=== PATIENT | male | born 1960 | race Caucasian/White ===

== ENCOUNTER 2017-02-17 12:13 | Day surgery (SDC) | payer MEDICARE ==
[~2017-02-17] VITALS: Ht 182.9 cm; Wt 89.4 kg
[~2017-02-17 12:13] MED LIST: AMLO5TAB2; CARV12.52; FURO-93; HYDR-3240; INSU100C SQ; INSU100V8; LISI-170; SPIR25TA3
[2017-02-17] MEDS ORDERED: LIDOCAINE 2%, 20ML ONE (12:30)
[2017-02-17 12:42] VITALS: BP 128/64
[2017-02-17] MEDS ORDERED: VISIPAQUE 270 MG/ML, 50ML BOTTLE ONE (13:00)
== END 2017-02-17 16:45 ==
LOC: OUT 12:13
DX: T82.858A Stenosis of other vascular prosthetic devices, implants and grafts, initial encounter (principal); Y83.8 Other surgical procedures as the cause of abnormal reaction of the patient, or of later complication, without mention of misadventure at the time of the procedure; Y92.89 Other specified places as the place of occurrence of the external cause; E11.22 Type 2 diabetes mellitus with diabetic chronic kidney disease; I12.0 Hypertensive chronic kidney disease with stage 5 chronic kidney disease or end stage renal disease; N18.5 Chronic kidney disease, stage 5; E78.5 Hyperlipidemia, unspecified; K58.9 Irritable bowel syndrome, unspecified; Z98.890 Other specified postprocedural states
CPT/HCPCS: 36902; C1725; C1769; C1894; J3490; Q9966

== ENCOUNTER 2020-12-02 21:16 | Inpatient (IN) | payer MEDICARE ==
[~2020-12-02] VITALS: Ht 182.9 cm; Wt 90.7 kg
[~2020-12-02 21:16] MED LIST changes: +AMLO-150; -AMLO5TAB2; +HYDR-2214; -HYDR-3240; -SPIR25TA3; +SPIR25TA5
--- NOTE | 2020-12-02 21:26 | NUR ---
INITIAL PT CONTACT. PT KELLY FROM HOME WITH COMPLAINTS OF INCREASED WEAKNESS RESULTING IN 3 FALLS IN THE LAST 3 DAYS. PT STATES HE WAS SEEN AT [facility] FOR SAME YESTERDAY. PT REPORTS INCREASED WEAKNESS IN LEGS FOLLOWING RECENT HOSPITALIZATION, "THEY DONT WALK ME ENOUGH WHEN I AM AT THE HOSPITAL." PT STATES HE IS A DIALYSIS PT (MWF) AND WENT TO DIALYSIS THIS AM DUE TO BEING SEEN AT THE HOSPITAL YESTERDAY. PT SITTING UPRIGHT ON GURNEY, NADN, VSS. PLACED ON CONTINUOUS MONITORING, CALL LIGHT AND PERSONAL BELONGINGS WITHIN REACH. PT PROVIDED SOCKS PER REQUEST. AWAITING ERP.
[2020-12-02 22:19] LABS: BASOPHILS % (AUTO) 1 % (0-1); EOSINOPHILS % (AUTO) 1 % (1-7); LYMPHOCYTES % (AUTO) 6 % (22-44); MEAN CORPUSCULAR HEMOGLOBIN 30.9 pg (27.5-34.5); MEAN CORPUSCULAR HGB CONC 34.2 g/dL (33.2-36.2); MONOCYTES % (AUTO) 8 % (2-9); NEUTROPHILS % (AUTO) 84 % (42-75); PLATELET COUNT 54 x10^3/uL (130-400); RED BLOOD COUNT 2.54 x10^6/uL (4.38-5.82); RED CELL DISTRIBUTION WIDTH 16.7 % (9.4-14.8)
[2020-12-02 22:29] LABS: ALANINE AMINOTRANSFERASE 32 U/L (12-78); ALBUMIN 2.6 g/dL (3.4-5.0); ANION GAP 9 mmol/L (5-15); CALCIUM 8.5 mg/dL (8.5-10.1); CHLORIDE 95 mmol/L (98-107); CREATININE 5.07 mg/dL (0.7-1.3)
[2020-12-02 22:31] LABS: ALKALINE PHOSPHATASE 172 U/L (45-117); BILIRUBIN,TOTAL 0.5 mg/dL (0.2-1.0); TOTAL PROTEIN 7.6 g/dL (6.4-8.2)
[2020-12-02] MEDS ORDERED: HYDR2TAB29 PO (22:50)
[2020-12-02] MEDS ORDERED: AMLO-211 PO (22:50)
[2020-12-02] MEDS ORDERED: CHOL10003 PO (22:50)
[2020-12-02] MEDS ORDERED: FLUO20CA23 PO (22:50)
[2020-12-02] MEDS ORDERED: VITA1CAP5 PO (22:50)
[2020-12-02] MEDS ORDERED: WARF2.5T32 PO (22:50)
[2020-12-02] MEDS ORDERED: SEVE800T8 PO (22:50)
[2020-12-02] MEDS ORDERED: PREG75CA PO (22:50)
[2020-12-02] MEDS ORDERED: OMEP40CA8 PO (22:50)
[2020-12-02] MEDS ORDERED: METO50TA82 PO (22:50)
[2020-12-02] MEDS ORDERED: CEFTRIAXONE 1,000 MG in DEXTROSE 5% 50 ML IVPB ONE (23:30)
[2020-12-02] MEDS ORDERED: DOXYCYCLINE 100 MG in DEXTROSE 5% 250 ML IV SCH (23:30)
--- NOTE | 2020-12-03 00:48 | NUR ---
YAIR SISTER: [phone] SISTER WANTS UPDATES WHEN POSSIBLE. OK TO DISCLOSE ALL INFO TO HER PER PT.
[2020-12-03] MEDS ORDERED: HYDROmorphone 2MG TABLET ONE (01:44)
[2020-12-03] MEDS ORDERED: HYDROmorphone 2MG TABLET PO PRN (02:00)
[2020-12-03] MEDS ORDERED: PHARMACY MAY ADJ FOR RENAL FX MC PRN (03:30)
[2020-12-03] MEDS ORDERED: LABETALOL 5MG/ML, 20ML IVPush PRN (03:30)
[2020-12-03] MEDS ORDERED: PROMETHAZINE 25 MG/ML, 1ML IM PRN (03:30)
[2020-12-03] MEDS ORDERED: ACETAMINOPHEN 325 MG TABLET PO PRN (03:30)
--- NOTE | 2020-12-03 04:16 | NUR ---
PT MOVED FROM ED GURNEY TO HOSPITAL BED. PT TOLERATED WELL. PT DENIES ANY ADDITIONAL NEEDS AT THIS TIME. CALL LIGHT AND BELONGINGS WITHIN REACH.
[2020-12-03 04:20] LABS: INTERNATIONAL NORMALIZED RATIO 1.5 (0.93-1.1); PROTHROMBIN TIME 15.7 Seconds (9.6-11.5)
--- NOTE | 2020-12-03 06:58 | NUR ---
RECEIVED REPORT FROM JOSSUE CASANOVA
--- NOTE | 2020-12-03 07:05 | NUR ---
PT SLEEPING CALMLY ON HOSPITAL BED, NAD/VSS WITH SUPPL O2 IN PLACE, NO NEEDS AT THIS TIME, CALL LIGHT WITHIN REACH.
--- NOTE | 2020-12-03 07:10 | NUR ---
BEDSIDE REPORT GIVEN TO RUDOLPH CASANOVA
--- NOTE | 2020-12-03 08:00 | NUR ---
PT UPRIGHT ON HOSPITAL BED AWAKE & COMFORTABLE, RESPONDS APPROP TO STAFF, NAD, COMFORT MEASURES PROVIDED, CALL LIGHT WITHIN REACH.
--- NOTE | 2020-12-03 08:35 | NUR ---
BREAKFAST TRAY GIVEN
[2020-12-03] MEDS ORDERED: FLUOXETINE HCL 20 MG CAPSULE ONE (08:50)
[2020-12-03] MEDS ORDERED: HEPARIN 5,000 UNITS/ML, 1ML ONE (08:50)
[2020-12-03] MEDS ORDERED: METOPROLOL TARTRATE 25 MG TAB ONE (08:50)
[2020-12-03] MEDS ORDERED: SEVELAMER CARBONATE 800MG TAB PO SCH (09:00)
--- NOTE | 2020-12-03 09:02 | NUR ---
PT REMAINS UPRIGHT ON HOSPITAL BED ABLE TO DOZE OFF EASILY BUT AWAKENS/RESPONDS APPROP TO STAFF, NAD, NO NEEDS AT THIS TIME, CALL LIGHT WITHIN REACH.
[2020-12-03] MEDS ORDERED: OMEPRAZOLE 20 MG CAPSULE.DR ONE (09:35)
[2020-12-03] MEDS: OMEPRAZOLE 20 MG CAPSULE.DR PO SCH ×2 (09:58→20:09)
[2020-12-03] MEDS: FLUOXETINE HCL 20 MG CAPSULE PO SCH (09:59)
[2020-12-03] MEDS: METOPROLOL TARTRATE 25 MG TAB PO SCH ×2 (09:59→20:09)
[2020-12-03] MEDS: HEPARIN 5,000 UNITS/ML, 1ML SQ SCH ×2 (09:59→18:20)
--- NOTE | 2020-12-03 10:01 | NUR ---
PT UPRIGHT ON HOSPITAL BED SLEEPING NTERMITTENTLY BUT AWAKENS/RESPONDS APPROP TO STAFF, NAD, COMFORT MEASURES PROVIDED, CALL LIGHT WITHIN REACH.
[2020-12-03] MEDS ORDERED: ACETAMINOPHEN 325 MG TABLET ONE (10:20)
--- NOTE | 2020-12-03 10:35 | NUR ---
UPDATE PROVIDED TO SISTER (YAIR) PER PT OK, SISTER WOULD LIKE TO BE NOTIFIED OF ANY CHANGES WHILE IN THE ER.
--- NOTE | 2020-12-03 11:03 | NUR ---
PT REMAINS UPRIGHT ON HOSPITAL BED DOZING INTERMITTENTLY BUT AWAKENS/RESPONDS APPROP TO STAFF, NAD, NO NEEDS AT THIS TIME, CALL LIGHT WITHIN REACH.
--- NOTE | 2020-12-03 12:04 | NUR ---
PT UPRIGHT ON HOSPITAL BED DOZING OFF BUT AWAKENS/RESPONDS APPROP TO STAFF, NAD, COMFORT MEASURES PROVIDED, CALL LIGHT WITHIN REACH.
[2020-12-03 14:03] VITALS: BP 145/85
[2020-12-03] MEDS: SEVELAMER CARBONATE 800MG TAB PO SCH ×2 (15:45→18:20)
[2020-12-03] MEDS: OXYcodone/APAP 5/325MG TABLET PO PRN (18:20)
[2020-12-03 21:50] VITALS: BP 132/87
[2020-12-04] MEDS ORDERED: PHARMACY INSTRUCTION MC ONE
[2020-12-04] MEDS: OXYcodone/APAP 5/325MG TABLET PO PRN ×2 (00:28→08:08)
[2020-12-04] MEDS: HEPARIN 5,000 UNITS/ML, 1ML SQ SCH ×2 (00:33→09:38)
[2020-12-04 02:00] VITALS: BP 140/80
[2020-12-04 06:31] LABS: BASOPHILS % (AUTO) 1 % (0-1); EOSINOPHILS % (AUTO) 2 % (1-7); LYMPHOCYTES % (AUTO) 12 % (22-44); MEAN CORPUSCULAR HEMOGLOBIN 30.3 pg (27.5-34.5); MEAN CORPUSCULAR HGB CONC 33.3 g/dL (33.2-36.2); MEAN PLATELET VOLUME 10.9 fL (7.4-10.4); MONOCYTES % (AUTO) 8 % (2-9); NEUTROPHILS % (AUTO) 78 % (42-75); RED BLOOD COUNT 2.59 x10^6/uL (4.38-5.82); RED CELL DISTRIBUTION WIDTH 16.7 % (9.4-14.8)
[2020-12-04 06:34] LABS: PLATELET COUNT 48 x10^3/uL (130-400)
[2020-12-04 06:46] LABS: ANION GAP 10 mmol/L (5-15); CALCIUM 7.9 mg/dL (8.5-10.1); CHLORIDE 95 mmol/L (98-107); CREATININE 7.64 mg/dL (0.7-1.3)
[2020-12-04] MEDS: SEVELAMER CARBONATE 800MG TAB PO SCH ×3 (08:12→17:52)
[2020-12-04 08:37] VITALS: BP 156/81
[2020-12-04] MEDS: OMEPRAZOLE 20 MG CAPSULE.DR PO SCH ×2 (09:34→20:30)
[2020-12-04] MEDS: FLUOXETINE HCL 20 MG CAPSULE PO SCH (09:34)
[2020-12-04] MEDS: METOPROLOL TARTRATE 25 MG TAB PO SCH ×2 (09:35→20:30)
[2020-12-04 11:36] VITALS: BP 154/83
[2020-12-04] MEDS: AMLODIPINE 10 MG TAB PO SCH (11:38)
[2020-12-04] MEDS: CARVEDILOL 12.5 MG TABLET PO SCH (11:38)
[2020-12-04] MEDS: PREGABALIN 75 MG CAPSULE PO SCH (11:38)
[2020-12-04] MEDS: HYDROmorphone 2MG TABLET PO PRN ×2 (11:39→21:57)
[2020-12-04] MEDS: CHOLECALCIFEROL 1,000 UNIT TABLET PO SCH (11:39)
[2020-12-04 14:01] VITALS: BP 136/83
[2020-12-04] MEDS: IRON SUCROSE COMPLEX 100MG/5ML IV SCH (14:48)
[2020-12-04 16:50] LABS: INTERNATIONAL NORMALIZED RATIO 1.42 (0.93-1.1); PROTHROMBIN TIME 14.9 Seconds (9.6-11.5)
[2020-12-04] MEDS ORDERED: WARFARIN 2.5 MG TABLET PO-COUM SCH (18:00)
[2020-12-04] MEDS ORDERED: WARFARIN 2.5 MG TABLET PO-COUM ONE (18:30)
[2020-12-04 18:41] VITALS: BP 138/76
[2020-12-05 00:30] VITALS: BP 145/78
[2020-12-05] MEDS: OXYcodone/APAP 5/325MG TABLET PO PRN ×3 (02:10→18:11)
[2020-12-05] MEDS: HYDROmorphone 2MG TABLET PO PRN ×3 (06:25→21:19)
[2020-12-05 07:09] LABS: ALBUMIN 2.3 g/dL (3.4-5.0); ANION GAP 10 mmol/L (5-15); CALCIUM 8.1 mg/dL (8.5-10.1); CHLORIDE 94 mmol/L (98-107); CREATININE 8.85 mg/dL (0.7-1.3)
[2020-12-05 07:33] LABS: INTERNATIONAL NORMALIZED RATIO 1.32 (0.93-1.1); PROTHROMBIN TIME 13.9 Seconds (9.6-11.5)
[2020-12-05 08:19] VITALS: BP 135/85
[2020-12-05] MEDS: CARVEDILOL 12.5 MG TABLET PO SCH (08:48)
[2020-12-05] MEDS: PREGABALIN 75 MG CAPSULE PO SCH (08:48)
[2020-12-05] MEDS: FLUOXETINE HCL 20 MG CAPSULE PO SCH (08:48)
[2020-12-05] MEDS: OMEPRAZOLE 20 MG CAPSULE.DR PO SCH ×2 (08:49→21:19)
[2020-12-05] MEDS: CHOLECALCIFEROL 1,000 UNIT TABLET PO SCH (08:49)
[2020-12-05] MEDS: AMLODIPINE 10 MG TAB PO SCH (08:49)
[2020-12-05] MEDS: SEVELAMER CARBONATE 800MG TAB PO SCH ×3 (08:49→18:10)
[2020-12-05] MEDS: METOPROLOL TARTRATE 25 MG TAB PO SCH ×2 (08:57→21:19)
[2020-12-05 09:05] LABS: BASOPHILS % (AUTO) 1 % (0-1); EOSINOPHILS % (AUTO) 2 % (1-7); LYMPHOCYTES % (AUTO) 12 % (22-44); MEAN CORPUSCULAR HEMOGLOBIN 30.3 pg (27.5-34.5); MEAN PLATELET VOLUME 10.5 fL (7.4-10.4); MONOCYTES % (AUTO) 7 % (2-9); NEUTROPHILS % (AUTO) 77 % (42-75); RED BLOOD COUNT 2.63 x10^6/uL (4.38-5.82); RED CELL DISTRIBUTION WIDTH 16.9 % (9.4-14.8)
[2020-12-05 09:17] LABS: PLATELET COUNT 48 x10^3/uL (130-400)
[2020-12-05] MEDS ORDERED: SODIUM THIOSULFATE 12.5 GM/50 ML IV SCH (13:00)
[2020-12-05 13:50] VITALS: BP 133/86
[2020-12-05] MEDS: LIDOCAINE 4% TOPICAL SOLUTION 50 ML TP SCH ×2 (14:12→21:38)
[2020-12-05] MEDS: IRON SUCROSE COMPLEX 100MG/5ML IV SCH ×2 (14:12→18:13)
[2020-12-05] MEDS: SODIUM THIOSULFATE 25 GM in SODIUM CHLORIDE 0.9% 100 ML IV SCH (15:08)
[2020-12-05] MEDS ORDERED: WARFARIN 2 MG TABLET PO-COUM ONE (18:00)
[2020-12-05 20:11] VITALS: BP 125/69
[2020-12-06 00:05] VITALS: BP 146/78
[2020-12-06] MEDS: LIDOCAINE 4% TOPICAL SOLUTION 50 ML TP SCH ×4 (01:07→20:07)
[2020-12-06 07:39] VITALS: BP 139/83
[2020-12-06] MEDS: FLUOXETINE HCL 20 MG CAPSULE PO SCH (07:55)
[2020-12-06] MEDS: PREGABALIN 75 MG CAPSULE PO SCH (07:55)
[2020-12-06] MEDS: HYDROmorphone 2MG TABLET PO PRN ×2 (07:56→13:52)
[2020-12-06] MEDS: CHOLECALCIFEROL 1,000 UNIT TABLET PO SCH (07:56)
[2020-12-06] MEDS: METOPROLOL TARTRATE 25 MG TAB PO SCH ×2 (07:56→20:08)
[2020-12-06] MEDS: OMEPRAZOLE 20 MG CAPSULE.DR PO SCH ×2 (07:57→20:07)
[2020-12-06] MEDS: SEVELAMER CARBONATE 800MG TAB PO SCH ×3 (07:57→18:31)
[2020-12-06] MEDS: AMLODIPINE 10 MG TAB PO SCH (07:57)
[2020-12-06] MEDS: CARVEDILOL 12.5 MG TABLET PO SCH (07:57)
[2020-12-06 10:03] LABS: INTERNATIONAL NORMALIZED RATIO 1.43 (0.93-1.1)
[2020-12-06] MEDS: OXYcodone/APAP 5/325MG TABLET PO PRN ×2 (10:16→20:09)
[2020-12-06 12:19] VITALS: BP 128/72
[2020-12-06] MEDS: IRON SUCROSE COMPLEX 100MG/5ML IV SCH (13:52)
[2020-12-06] MEDS ORDERED: WARFARIN 5 MG TABLET PO-COUM ONE (18:00)
[2020-12-06 19:33] VITALS: BP 125/70
[2020-12-07] MEDS: HYDROmorphone 2MG TABLET PO PRN ×3 (02:10→20:35)
[2020-12-07] MEDS: LIDOCAINE 4% TOPICAL SOLUTION 50 ML TP SCH ×4 (02:10→20:35)
[2020-12-07 02:41] VITALS: BP 127/72
[2020-12-07 05:34] LABS: INTERNATIONAL NORMALIZED RATIO 2.04 (0.93-1.1); PROTHROMBIN TIME 21.1 Seconds (9.6-11.5)
[2020-12-07] MEDS: METOPROLOL TARTRATE 25 MG TAB PO SCH ×2 (07:32→20:32)
[2020-12-07] MEDS: OXYcodone/APAP 5/325MG TABLET PO PRN ×3 (07:32→23:33)
[2020-12-07] MEDS: AMLODIPINE 10 MG TAB PO SCH (07:33)
[2020-12-07] MEDS: PREGABALIN 75 MG CAPSULE PO SCH (07:33)
[2020-12-07] MEDS: SEVELAMER CARBONATE 800MG TAB PO SCH ×3 (07:33→16:13)
[2020-12-07] MEDS: FLUOXETINE HCL 20 MG CAPSULE PO SCH (07:33)
[2020-12-07] MEDS: CHOLECALCIFEROL 1,000 UNIT TABLET PO SCH (07:33)
[2020-12-07] MEDS: CARVEDILOL 12.5 MG TABLET PO SCH (07:33)
[2020-12-07] MEDS: OMEPRAZOLE 20 MG CAPSULE.DR PO SCH ×2 (07:34→20:32)
[2020-12-07 07:37] VITALS: BP 123/71
[2020-12-07 08:17] LABS: BASOPHILS % (AUTO) 1 % (0-1); EOSINOPHILS % (AUTO) 2 % (1-7); LYMPHOCYTES % (AUTO) 11 % (22-44); MEAN CORPUSCULAR HEMOGLOBIN 30.1 pg (27.5-34.5); MEAN CORPUSCULAR HGB CONC 32.8 g/dL (33.2-36.2); MEAN PLATELET VOLUME 12.1 fL (7.4-10.4); MONOCYTES % (AUTO) 7 % (2-9); NEUTROPHILS % (AUTO) 79 % (42-75); PLATELET COUNT 51 x10^3/uL (130-400); RED BLOOD COUNT 2.35 x10^6/uL (4.38-5.82); RED CELL DISTRIBUTION WIDTH 16.6 % (9.4-14.8)
[2020-12-07 08:27] LABS: ALANINE AMINOTRANSFERASE 21 U/L (12-78); ALBUMIN 2.3 g/dL (3.4-5.0); ANION GAP 12 mmol/L (5-15); CALCIUM 8.4 mg/dL (8.5-10.1); CHLORIDE 96 mmol/L (98-107); CREATININE 7.26 mg/dL (0.7-1.3)
[2020-12-07 08:30] LABS: ALKALINE PHOSPHATASE 149 U/L (45-117); BILIRUBIN,TOTAL 0.4 mg/dL (0.2-1.0); TOTAL PROTEIN 6.7 g/dL (6.4-8.2)
[2020-12-07] MEDS: CINACALCET 30 MG TABLET PO SCH (12:10)
[2020-12-07 12:47] VITALS: BP 137/82
[2020-12-07] MEDS: IRON SUCROSE COMPLEX 100MG/5ML IV SCH (14:04)
[2020-12-07] MEDS ORDERED: WARFARIN 2 MG TABLET PO-COUM ONE (18:00)
[2020-12-07 19:45] VITALS: BP 138/77
[2020-12-08] VITALS (9 sets, daily range): BP systolic 103–142; BP diastolic 61–82
[2020-12-08] MEDS: LIDOCAINE 4% TOPICAL SOLUTION 50 ML TP SCH ×5 (01:59→21:18)
[2020-12-08 07:44] LABS: BASOPHILS % (AUTO) 1 % (0-1); EOSINOPHILS % (AUTO) 2 % (1-7); LYMPHOCYTES % (AUTO) 14 % (22-44); MEAN CORPUSCULAR HEMOGLOBIN 30.6 pg (27.5-34.5); MEAN CORPUSCULAR HGB CONC 33.6 g/dL (33.2-36.2); MEAN PLATELET VOLUME 11.2 fL (7.4-10.4); MONOCYTES % (AUTO) 6 % (2-9); NEUTROPHILS % (AUTO) 77 % (42-75); PLATELET COUNT 52 x10^3/uL (130-400); RED BLOOD COUNT 2.34 x10^6/uL (4.38-5.82); RED CELL DISTRIBUTION WIDTH 16.8 % (9.4-14.8)
[2020-12-08 07:53] LABS: ALBUMIN 2.4 g/dL (3.4-5.0); ANION GAP 11 mmol/L (5-15); CALCIUM 8.2 mg/dL (8.5-10.1); CHLORIDE 94 mmol/L (98-107)
[2020-12-08 07:54] LABS: INTERNATIONAL NORMALIZED RATIO 3.99 (0.93-1.1)
[2020-12-08 08:07] LABS: ALANINE AMINOTRANSFERASE 23 U/L (12-78); ALKALINE PHOSPHATASE 147 U/L (45-117); BILIRUBIN,TOTAL 0.5 mg/dL (0.2-1.0); TOTAL PROTEIN 6.7 g/dL (6.4-8.2)
[2020-12-08] MEDS: AMLODIPINE 10 MG TAB PO SCH (08:12)
[2020-12-08] MEDS: CINACALCET 30 MG TABLET PO SCH (08:12)
[2020-12-08] MEDS: SEVELAMER CARBONATE 800MG TAB PO SCH ×3 (08:12→17:56)
[2020-12-08] MEDS: OMEPRAZOLE 20 MG CAPSULE.DR PO SCH ×2 (08:12→21:13)
[2020-12-08] MEDS: CARVEDILOL 12.5 MG TABLET PO SCH (08:12)
[2020-12-08] MEDS: FLUOXETINE HCL 20 MG CAPSULE PO SCH (08:13)
[2020-12-08] MEDS: PREGABALIN 75 MG CAPSULE PO SCH (08:13)
[2020-12-08] MEDS: METOPROLOL TARTRATE 25 MG TAB PO SCH ×2 (08:13→21:14)
[2020-12-08] MEDS: HYDROmorphone 2MG TABLET PO PRN ×2 (10:41→17:55)
[2020-12-08] MEDS ORDERED: ARANESP 100 MCG/ML **ESRD SQ SCH (12:00)
[2020-12-08] MEDS: IRON SUCROSE COMPLEX 100MG/5ML IV SCH (12:32)
[2020-12-08] MEDS: SODIUM THIOSULFATE 25 GM in SODIUM CHLORIDE 0.9% 100 ML IV SCH (16:00)
[2020-12-08] MEDS ORDERED: HOLD WARFARIN MC ONE (18:00)
[2020-12-08] MEDS: OXYcodone/APAP 5/325MG TABLET PO PRN (21:13)
[2020-12-09 02:30] VITALS: BP 124/61
[2020-12-09] MEDS: HYDROmorphone 2MG TABLET PO PRN ×3 (02:38→14:35)
[2020-12-09] MEDS: LIDOCAINE 4% TOPICAL SOLUTION 50 ML TP SCH ×5 (04:38→21:19)
[2020-12-09 06:53] LABS: INTERNATIONAL NORMALIZED RATIO 4.8 (0.93-1.1); PROTHROMBIN TIME 47.7 Seconds (9.6-11.5)
[2020-12-09 06:54] LABS: BASOPHILS % (AUTO) 1 % (0-1); EOSINOPHILS % (AUTO) 2 % (1-7); LYMPHOCYTES % (AUTO) 13 % (22-44); MEAN CORPUSCULAR HGB CONC 34.4 g/dL (33.2-36.2); MEAN PLATELET VOLUME 10.8 fL (7.4-10.4); MONOCYTES % (AUTO) 9 % (2-9); NEUTROPHILS % (AUTO) 76 % (42-75); PLATELET COUNT 61 x10^3/uL (130-400); RED BLOOD COUNT 2.63 x10^6/uL (4.38-5.82); RED CELL DISTRIBUTION WIDTH 16.3 % (9.4-14.8)
[2020-12-09 06:55] LABS: ALANINE AMINOTRANSFERASE 26 U/L (12-78); ALBUMIN 2.3 g/dL (3.4-5.0); ANION GAP 16 mmol/L (5-15); CALCIUM 8.3 mg/dL (8.5-10.1); CHLORIDE 95 mmol/L (98-107)
[2020-12-09 06:58] LABS: ALKALINE PHOSPHATASE 142 U/L (45-117); BILIRUBIN,TOTAL 0.4 mg/dL (0.2-1.0); CREATININE 6.01 mg/dL (0.7-1.3); TOTAL PROTEIN 6.9 g/dL (6.4-8.2)
[2020-12-09 08:14] VITALS: BP 138/58
[2020-12-09] MEDS: AMLODIPINE 10 MG TAB PO SCH (08:51)
[2020-12-09] MEDS: OMEPRAZOLE 20 MG CAPSULE.DR PO SCH ×2 (08:51→21:10)
[2020-12-09] MEDS: OXYcodone/APAP 5/325MG TABLET PO PRN ×2 (08:52→21:20)
[2020-12-09] MEDS: SEVELAMER CARBONATE 800MG TAB PO SCH ×3 (08:52→17:12)
[2020-12-09] MEDS: CINACALCET 30 MG TABLET PO SCH (08:52)
[2020-12-09] MEDS: CARVEDILOL 12.5 MG TABLET PO SCH (08:52)
[2020-12-09] MEDS: FLUOXETINE HCL 20 MG CAPSULE PO SCH (08:52)
[2020-12-09] MEDS: METOPROLOL TARTRATE 25 MG TAB PO SCH ×2 (08:53→21:10)
[2020-12-09] MEDS: PREGABALIN 75 MG CAPSULE PO SCH (08:53)
[2020-12-09 14:00] VITALS: BP 120/76
[2020-12-09] MEDS ORDERED: HOLD WARFARIN MC ONE (18:00)
[2020-12-09 20:00] VITALS: BP 154/82
[2020-12-10 01:09] VITALS: BP 161/77
[2020-12-10] MEDS: LIDOCAINE 4% TOPICAL SOLUTION 50 ML TP SCH ×4 (02:52→19:57)
[2020-12-10] MEDS: HYDROmorphone 2MG TABLET PO PRN ×2 (06:01→14:18)
[2020-12-10 07:30] LABS: INTERNATIONAL NORMALIZED RATIO 4.07 (0.93-1.1); PROTHROMBIN TIME 40.7 Seconds (9.6-11.5)
[2020-12-10 07:42] VITALS: BP 144/90
[2020-12-10] MEDS: AMLODIPINE 10 MG TAB PO SCH (09:00)
[2020-12-10] MEDS: OMEPRAZOLE 20 MG CAPSULE.DR PO SCH ×2 (09:00→19:57)
[2020-12-10] MEDS: SEVELAMER CARBONATE 800MG TAB PO SCH ×3 (09:04→18:48)
[2020-12-10] MEDS: OXYcodone/APAP 5/325MG TABLET PO PRN ×2 (09:05→18:48)
[2020-12-10] MEDS ORDERED: DOCUSATE 100 MG CAPSULE PO PRN (09:30)
[2020-12-10] MEDS ORDERED: POLYETHYLENE GLYCOL 17 GM PACKET PO PRN (09:30)
[2020-12-10] MEDS: CARVEDILOL 12.5 MG TABLET PO SCH (09:36)
[2020-12-10] MEDS: FLUOXETINE HCL 20 MG CAPSULE PO SCH (09:36)
[2020-12-10] MEDS: CINACALCET 30 MG TABLET PO SCH (09:36)
[2020-12-10] MEDS: METOPROLOL TARTRATE 25 MG TAB PO SCH ×2 (09:36→19:57)
[2020-12-10] MEDS ORDERED: ARANESP 100 MCG/ML **ESRD SQ SCH (13:38)
[2020-12-10 13:39] VITALS: BP 139/87
[2020-12-10] MEDS: SODIUM THIOSULFATE 25 GM in SODIUM CHLORIDE 0.9% 100 ML IV SCH (15:59)
[2020-12-10] MEDS: PREGABALIN 75 MG CAPSULE PO SCH (18:48)
[2020-12-10 20:01] VITALS: BP 149/89
[2020-12-10] MEDS ORDERED: APIXABAN 5 MG TABLET PO SCH (21:00)
[2020-12-11 00:42] VITALS: BP 151/74
[2020-12-11] MEDS: HYDROmorphone 2MG TABLET PO PRN ×2 (00:47→09:25)
[2020-12-11] MEDS: LIDOCAINE 4% TOPICAL SOLUTION 50 ML TP SCH ×4 (03:12→20:17)
[2020-12-11] MEDS: OXYcodone/APAP 5/325MG TABLET PO PRN ×3 (03:15→20:11)
[2020-12-11 05:18] LABS: INTERNATIONAL NORMALIZED RATIO 3.51 (0.93-1.1); PROTHROMBIN TIME 35.4 Seconds (9.6-11.5)
[2020-12-11 05:21] LABS: CHLORIDE 93 mmol/L (98-107)
[2020-12-11 05:30] LABS: ALANINE AMINOTRANSFERASE 28 U/L (12-78); ALBUMIN 2.2 g/dL (3.4-5.0); ALKALINE PHOSPHATASE 134 U/L (45-117); ANION GAP 13 mmol/L (5-15); BILIRUBIN,TOTAL 0.4 mg/dL (0.2-1.0); CALCIUM 8.5 mg/dL (8.5-10.1); CREATININE 5.38 mg/dL (0.7-1.3); TOTAL PROTEIN 6.7 g/dL (6.4-8.2)
[2020-12-11 08:55] VITALS: BP 148/78
[2020-12-11] MEDS: CARVEDILOL 12.5 MG TABLET PO SCH (09:08)
[2020-12-11] MEDS: SEVELAMER CARBONATE 800MG TAB PO SCH ×3 (09:08→18:30)
[2020-12-11] MEDS: METOPROLOL TARTRATE 25 MG TAB PO SCH ×2 (09:08→20:07)
[2020-12-11] MEDS: CINACALCET 30 MG TABLET PO SCH (09:08)
[2020-12-11] MEDS: OMEPRAZOLE 20 MG CAPSULE.DR PO SCH ×2 (09:08→20:06)
[2020-12-11] MEDS: AMLODIPINE 10 MG TAB PO SCH (09:08)
[2020-12-11] MEDS: FLUOXETINE HCL 20 MG CAPSULE PO SCH (09:08)
[2020-12-11] MEDS: PREGABALIN 75 MG CAPSULE PO SCH (09:09)
[2020-12-11 10:45] VITALS: BP 121/69
[2020-12-11 13:35] VITALS: BP 130/85
[2020-12-11 20:06] VITALS: BP 144/88
[2020-12-12 00:26] VITALS: BP 128/71
[2020-12-12] MEDS: LIDOCAINE 4% TOPICAL SOLUTION 50 ML TP SCH ×4 (02:34→20:17)
[2020-12-12] MEDS: OXYcodone/APAP 5/325MG TABLET PO PRN ×2 (02:54→19:08)
[2020-12-12 05:05] LABS: BASOPHILS % (AUTO) 1 % (0-1); EOSINOPHILS % (AUTO) 2 % (1-7); LYMPHOCYTES % (AUTO) 13 % (22-44); MEAN CORPUSCULAR HEMOGLOBIN 30.5 pg (27.5-34.5); MEAN CORPUSCULAR HGB CONC 33.7 g/dL (33.2-36.2); MEAN PLATELET VOLUME 10.2 fL (7.4-10.4); MONOCYTES % (AUTO) 7 % (2-9); NEUTROPHILS % (AUTO) 77 % (42-75); PLATELET COUNT 64 x10^3/uL (130-400); RED BLOOD COUNT 2.57 x10^6/uL (4.38-5.82); RED CELL DISTRIBUTION WIDTH 16.7 % (9.4-14.8)
[2020-12-12 05:15] LABS: INTERNATIONAL NORMALIZED RATIO 2.73 (0.93-1.1); PROTHROMBIN TIME 27.8 Seconds (9.6-11.5)
[2020-12-12 05:23] LABS: ALANINE AMINOTRANSFERASE 28 U/L (12-78); ALBUMIN 2.4 g/dL (3.4-5.0); ANION GAP 14 mmol/L (5-15); CHLORIDE 91 mmol/L (98-107); CREATININE 6.87 mg/dL (0.7-1.3)
[2020-12-12 05:25] LABS: ALKALINE PHOSPHATASE 142 U/L (45-117); BILIRUBIN,TOTAL 0.5 mg/dL (0.2-1.0); TOTAL PROTEIN 6.7 g/dL (6.4-8.2)
[2020-12-12 07:01] VITALS: BP 143/82
[2020-12-12] MEDS: HYDROmorphone 2MG TABLET PO PRN (07:59)
[2020-12-12 12:21] VITALS: BP 166/96
[2020-12-12] MEDS: OMEPRAZOLE 20 MG CAPSULE.DR PO SCH ×2 (12:23→20:14)
[2020-12-12] MEDS: FLUOXETINE HCL 20 MG CAPSULE PO SCH (12:23)
[2020-12-12] MEDS: PREGABALIN 75 MG CAPSULE PO SCH (12:23)
[2020-12-12] MEDS: CARVEDILOL 12.5 MG TABLET PO SCH (12:24)
[2020-12-12] MEDS: AMLODIPINE 10 MG TAB PO SCH (12:24)
[2020-12-12] MEDS: SEVELAMER CARBONATE 800MG TAB PO SCH ×2 (12:24→18:18)
[2020-12-12] MEDS: CINACALCET 30 MG TABLET PO SCH (12:25)
[2020-12-12] MEDS: METOPROLOL TARTRATE 25 MG TAB PO SCH ×2 (12:25→20:15)
[2020-12-12] MEDS: SODIUM THIOSULFATE 25 GM in SODIUM CHLORIDE 0.9% 100 ML IV SCH (13:33)
[2020-12-12] MEDS ORDERED: SEVE800T8 PO (17:02)
[2020-12-12] MEDS ORDERED: APIX5TAB PO (17:02)
[2020-12-12] MEDS ORDERED: CINA30TA2 PO (17:02)
[2020-12-12] MEDS ORDERED: HYDR-3342 PO (17:02)
[2020-12-12 20:11] VITALS: BP 127/69
[2020-12-12 23:41] VITALS: BP 139/72
[2020-12-13 00:26] VITALS: BP 128/69
[2020-12-13] MEDS: OXYcodone/APAP 5/325MG TABLET PO PRN ×2 (01:08→12:15)
[2020-12-13] MEDS: LIDOCAINE 4% TOPICAL SOLUTION 50 ML TP SCH ×3 (02:36→15:00)
[2020-12-13] MEDS: HYDROmorphone 2MG TABLET PO PRN (04:35)
[2020-12-13 05:46] LABS: BASOPHILS % (AUTO) 1 % (0-1); CHLORIDE 92 mmol/L (98-107); EOSINOPHILS % (AUTO) 1 % (1-7); INTERNATIONAL NORMALIZED RATIO 1.96 (0.93-1.1); LYMPHOCYTES % (AUTO) 15 % (22-44); MEAN CORPUSCULAR HEMOGLOBIN 30.6 pg (27.5-34.5); MEAN CORPUSCULAR HGB CONC 33.8 g/dL (33.2-36.2); MEAN PLATELET VOLUME 10.9 fL (7.4-10.4); MONOCYTES % (AUTO) 8 % (2-9); NEUTROPHILS % (AUTO) 76 % (42-75); PLATELET COUNT 72 x10^3/uL (130-400); PROTHROMBIN TIME 20.3 Seconds (9.6-11.5); RED CELL DISTRIBUTION WIDTH 16.6 % (9.4-14.8)
[2020-12-13 05:54] LABS: ALANINE AMINOTRANSFERASE 26 U/L (12-78); ALBUMIN 2.2 g/dL (3.4-5.0); ALKALINE PHOSPHATASE 139 U/L (45-117); ANION GAP 16 mmol/L (5-15); BILIRUBIN,TOTAL 0.4 mg/dL (0.2-1.0); CALCIUM 8.9 mg/dL (8.5-10.1); CREATININE 4.84 mg/dL (0.7-1.3); TOTAL PROTEIN 6.8 g/dL (6.4-8.2)
[2020-12-13 08:00] VITALS: BP 130/84
[2020-12-13 12:34] VITALS: BP 130/76
[2020-12-13] MEDS: SEVELAMER CARBONATE 800MG TAB PO SCH ×3 (13:41→17:00)
[2020-12-13] MEDS: FLUOXETINE HCL 20 MG CAPSULE PO SCH ×2 (13:41→13:46)
[2020-12-13] MEDS: AMLODIPINE 10 MG TAB PO SCH ×2 (13:41→13:46)
[2020-12-13] MEDS: CINACALCET 30 MG TABLET PO SCH ×2 (13:41→13:46)
[2020-12-13] MEDS: METOPROLOL TARTRATE 25 MG TAB PO SCH ×2 (13:42→13:46)
[2020-12-13] MEDS: CARVEDILOL 12.5 MG TABLET PO SCH ×2 (13:43→13:47)
[2020-12-13] MEDS: PREGABALIN 75 MG CAPSULE PO SCH (13:46)
[2020-12-13] MEDS: OMEPRAZOLE 20 MG CAPSULE.DR PO SCH (13:51)
[2020-12-15] MEDS ORDERED: ARANESP 100 MCG/ML **ESRD SQ SCH (14:00)
== END 2020-12-13 19:10 | disposition home health service (06) | DRG 291 ==
LOC: ED 12-03 00:23 → EDIP 12-03 00:38 → OBSVTOIN 12-03 00:38 → INTOOBSV 12-03 00:38 → 4EST 12-03 13:56
PROVIDERS: ADMIT Family Medicine; ATTEND Hospitalist
PROC: 5A1D70Z Performance of Urinary Filtration, Intermittent, Less than 6 Hours Per Day (ICD-10-PCS; 2020-12-04)
PROC: 30233N1 Transfusion of Nonautologous Red Blood Cells into Peripheral Vein, Percutaneous Approach (ICD-10-PCS; principal; 2020-12-08)
PROC: 5A1D70Z Performance of Urinary Filtration, Intermittent, Less than 6 Hours Per Day (ICD-10-PCS; 2020-12-08)
PROC: 5A1D70Z Performance of Urinary Filtration, Intermittent, Less than 6 Hours Per Day (ICD-10-PCS; 2020-12-10)
PROC: 5A1D70Z Performance of Urinary Filtration, Intermittent, Less than 6 Hours Per Day (ICD-10-PCS; 2020-12-12)
DX: I13.2 Hypertensive heart and chronic kidney disease with heart failure and with stage 5 chronic kidney disease, or end stage renal disease (principal); N18.6 End stage renal disease; D68.69 Other thrombophilia; E87.1 Hypo-osmolality and hyponatremia; I48.20 Chronic atrial fibrillation, unspecified; I50.22 Chronic systolic (congestive) heart failure; D69.6 Thrombocytopenia, unspecified; D63.1 Anemia in chronic kidney disease; N48.89 Other specified disorders of penis; Z20.822 Contact with and (suspected) exposure to COVID-19; B19.20 Unspecified viral hepatitis C without hepatic coma; E11.22 Type 2 diabetes mellitus with diabetic chronic kidney disease; I43 Cardiomyopathy in diseases classified elsewhere; K74.60 Unspecified cirrhosis of liver; I48.0 Paroxysmal atrial fibrillation; Z99.2 Dependence on renal dialysis; Z87.891 Personal history of nicotine dependence
CPT/HCPCS: 36415; 71045; 80048; 80053; 80069; 82306; 82330; 82728; 83540; 83550; 83735; 83970; 84100; 84145; 84443; 85014; 85018; 85025; 85610; 86850; 86900; 86923; 87040; 87340; 90935; 93005; 96365; 96366; 96368; 99285; G0378; J0696; J0882; J1644; J1756; J7060; U0005; P9016; U0003